=== PATIENT | female | born 1960 | race African-American/Black ===

== ENCOUNTER → 2016-10-31 | Day surgery (SDC) | payer BC ==
[~2016-10-31] MED LIST: ALBUTEROL17 GM INH; AMOXICILLIN500 M1 PO; ARTHRITIS PAIN650 M3 PO; BUPROPION XL300 M1 PO; DICYCLOMINE HCL20 MG; HYDROCODON-ACE1 EAC7 PO; LODINE PO; MULTIPLE VITAMI1 T11 PO; OYSTER CALCIUM500 MG; PREDNISONE PO; PRILOSEC; SYNTHROID25 MCG PO; ULTRAM PO; VICODIN 5/1 TAB 5/50 PO; WELCHOL3.75 GM PO; WELCHOL625 M1 PO; [UNRECOGNIZED DRUG - REMARK]
--- NOTE | ~2016-10-31 | OR ---
Unit #: [id number] #: [id number] Patient: NEL SCOTT V [id number] [address] [id number] O MR#: [id number] NAME: NEL SCOTT V. ROOM: Date of Procedure: 10/31/2016 Admission Date: 10/31/2016 Surgeon: Sanchez Morales M.D. : 1960 Attending Physician: Sanchez Morales M.D. Primary Care Physician: Claudia Ireland M.D. OPERATIVE REPORT JOB NOTE: VERIFY CC. PROCEDURE PERFORMED Colonoscopy to cecum. INDICATIONS FOR PROCEDURE Average risk for colorectal cancer. MEDICATION Monitored anesthesia. POSTOPERATIVE FINDINGS 1. Normal examine. 2. Good prep. 3. No polyps, masses, or colitis were seen. 4. Small hemorrhoids. PLAN Repeat colonoscopy in 10 years. DESCRIPTION OF PROCEDURE The patient was explained of the procedure, risks, and benefits along with the risks and benefits of anesthesia. She was brought to the endoscopy room. Propofol anesthesia was given. Rectal exam was done, which was normal. Colonoscope was lubricated, passed up the rectum, advanced under direct vision all the way to cecum. Cecum was identified by ileocecal valve and appendiceal orifice. At this point, I started to pull the scope out carefully looking. No polyps, masses, or colitis were seen. Mucosa was normal and healthy. I retroflexed in the rectum. Small hemorrhoids were seen. Scope was gently pulled out. She tolerated it well. Dictated by... Yehuda Grewal/ignacia TD: 11/01/2016 02:10 JOB #: [id number] Unit #: [id number] #: [id number] Patient: NEL SCOTT V OPERATIVE REPORT Page 1 of 1 X Sanchez Morales MD X PROCEDURE OPERATIVE NOTE
== END | disposition home or self-care (01) ==
LOC: COPS 09:25
PROVIDERS: Internal Medicine
PROC: 0DJD8ZZ Inspection of Lower Intestinal Tract, Via Natural or Artificial Opening Endoscopic (ICD-10-PCS; principal; 2016-10-31 12:00)
DX: Z12.11 Encounter for screening for malignant neoplasm of colon (principal); K64.9 Unspecified hemorrhoids; K21.9 Gastro-esophageal reflux disease without esophagitis; F17.200 Nicotine dependence, unspecified, uncomplicated; Z79.1 Long term (current) use of non-steroidal anti-inflammatories (NSAID); Z79.899 Other long term (current) drug therapy; Z88.8 Allergy status to other drugs, medicaments and biological substances; Z91.013 Allergy to seafood